=== PATIENT | female | born 1980 | race Caucasian/White ===

== ENCOUNTER → 2016-08-10 | Outpatient (CLI) | payer BC | LOC: LAB 09:37 | PROVIDERS: ATTEND Specialist | DX: M60.9 Myositis, unspecified (principal) | CPT/HCPCS: 36415; 82085; 82550 ==

== ENCOUNTER → 2016-11-28 | Outpatient (CLI) | payer BC ==
--- NOTE | 2016-11-28 10:17 | DI ---
DOUBLE CONTRAST UPPER GI SERIES, 11/28/2016 9:21 AM: Clinical History: Lesion of the larynx. A "time out" session was performed to verify the patient's name and date of prior to initiating this procedure. Deglutition is normal and the esophagus strips well. The esophagus is normal. There is no esophageal ulcer, stricture, or evidence of esophagitis. There is no hiatal hernia. There is ma rked spontaneous reflux of barium into the cervical esophagus with the patient in the supine position . The stomach, pyloric channel, duodenal bulb, C-loop, and the proximal small bowel run off are loida l. Readin. There is gross spontaneous reflux of barium to the cervical esophagus with the patient in the sup ine position. The esophagus itself is normal. There is no evidence of a a lesion in the distal esopha martha at the GE junction or in the cervical esophagus. 2. The stomach, pyloric channel, duodenal bulb, C-loop, and proximal small bowel run off are normal.
== END ==
LOC: RAD 09:16
PROVIDERS: ATTEND Nurse Practitioner Family
DX: J38.7 Other diseases of larynx (principal)
CPT/HCPCS: 74246

== ENCOUNTER → 2016-12-08 | Outpatient (CLI) | payer BC | LOC: EKG 10:21 | PROVIDERS: ATTEND Nurse Practitioner Family | DX: R00.2 Palpitations (principal) | CPT/HCPCS: 93270 ==

== ENCOUNTER → 2017-03-12 | Outpatient (CLI) | payer BC ==
[2017-03-14 07:16] LABS: IGA SERUM 107 mg/dL (61 - 356); TISSUE TRANSGLUT AB IGA <1.2 U/mL (())
== END ==
LOC: LAB 09:45
PROVIDERS: ATTEND Internal Medicine Gastroenterology
DX: R13.10 Dysphagia, unspecified (principal); K21.9 Gastro-esophageal reflux disease without esophagitis; J02.9 Acute pharyngitis, unspecified; R10.32 Left lower quadrant pain; R10.31 Right lower quadrant pain; K92.1 Melena
CPT/HCPCS: 36415; 82784; 83516

== ENCOUNTER → 2017-03-12 | Outpatient (CLI) | payer BC ==
[2017-03-12 10:42] LABS: BLOOD UREA NITROGEN 14 mg/dL (7-22); EST GLOMERULAR FILTRATION > 60 (>60 ml/min/1.73m(2)); SERUM ALBUMIN 4.1 g/dL (3.5-4.8)
[2017-03-12 10:58] LABS: FREE T4 (FREE THYROXINE) 1.4 ng/dL (0.93-1.71)
[2017-03-12 11:16] LABS: FERRITIN 52.5 ng/mL (12.00-336.70)
[2017-03-13 13:54] LABS: DEHYDROEPIANDROSTERONE SULFATE 53.1 mcg/dL (31-228); THYROID PEROXIDASE AB 126.1 IU/mL (<9.0)
== END ==
LOC: LAB 09:47
PROVIDERS: ATTEND Student in an Organized Health Care Education/Training Program
DX: E03.4 Atrophy of thyroid (acquired) (principal); N92.6 Irregular menstruation, unspecified; E66.3 Overweight; R53.83 Other fatigue
CPT/HCPCS: 80053; 82024; 82627; 82728; 83540; 83550; 84146; 84439; 84443; 86376

== ENCOUNTER → 2017-03-19 | Outpatient (CLI) | payer BC ==
[2017-03-21 17:16] LABS: COLLECTION DURATION 24 h (())
[2017-03-22 06:46] LABS: URINE VOLUME 1725 mL (())
== END ==
LOC: LAB 12:00
PROVIDERS: ATTEND Student in an Organized Health Care Education/Training Program
DX: E03.4 Atrophy of thyroid (acquired) (principal); N92.6 Irregular menstruation, unspecified; R53.83 Other fatigue; E66.3 Overweight
CPT/HCPCS: 82530

== ENCOUNTER 2018-05-16 08:39 | Observation (INO) ==
[~2018-05-16 08:39] MED LIST: CefOXitin Inj 2 GM in Sodium Chloride 0.9% 100 ML IV ONE; LIDOCAINE W/ SODIUM BICARB 0.5 ML SYR ONE; LIDOCAINE W/ SODIUM BICARB 0.5 ML SYR SUBD ONE; Lactated Ringers 1,000 ML PRIMARY IV ONE; Nasal Sanitizer POPSWAB ampule 3 AMP (Nozin) PREOP DOSE ENOS SCH; Sodium Chloride 0.9% 100 ML IV ONE
[2018-05-16] MEDS: Lactated Ringers 1,000 ML PRIMARY IV SCH ×2 (08:56→16:41)
[2018-05-16 08:57] LABS: URINE SPECIFIC GRAVITY - MAN 1.015
[2018-05-16 09:04] LABS: BACTERIA,URINE RARE; BILIRUBIN,URINE NEGATIVE (NEG); CLARITY,URINE Slightly Cloudy (CLEAR); COLOR,URINE YELLOW (Y); GLUCOSE, URINE (UA) NEGATIVE (NEG); OCCULT BLOOD,URINE NEGATIVE (NEG); PH,URINE 7.5 (5.0-8.5); PROTEIN,URINE NEGATIVE (NEG); RBC,URINE 0-1 /hpf; SQUAMOUS EPITHELIAL CELL,UR RARE; URINE SAMPLE TYPE CLEAN CATCH URINE; UROBILINOGEN,URINE 0.2 EU/dL (0.2); WBC,URINE 0-1
[2018-05-16 09:28] LABS: Hematocrit [HCT] 43.4 % (37.0-47.0); Hemoglobin [HGB] 15.5 g/dL (12.0-16.0)
[2018-05-16] MEDS ORDERED: LIDOCAINE HCL 2 % 10 ML JELLY URO-JECT TOPICAL ONE (09:54)
[2018-05-16] MEDS ORDERED: BUPIVACAINE 0.25% W/ EPI - 10 ML VIAL ONE (10:04)
[2018-05-16] MEDS ORDERED: Acetaminophen 1000mg Inj 1,000 MG/100 ML VIAL IV ONE (10:11)
[2018-05-16] MEDS ORDERED: ONDANSETRON 4 MG/2 ML VIAL ONE ×2 (10:11→11:56)
[2018-05-16] MEDS ORDERED: DEXAMETHASONE PF 10 MG/1 ML VIAL ONE (10:11)
[2018-05-16] MEDS ORDERED: PANTOPRAZOLE IV 40 MG VIAL ONE (10:11)
[2018-05-16] MEDS ORDERED: PROPOFOL 10 MG/1 ML (200 MG/20 ML) VIAL IV ONE (10:18)
[2018-05-16] MEDS ORDERED: SUFENTANIL 50 MCG/1 ML ONE (10:18)
[2018-05-16] MEDS ORDERED: MIDAZOLAM 5 MG/1 ML ONE (10:18)
[2018-05-16] MEDS ORDERED: fentaNYL Inj 250 MCG/5 ML VIAL ONE (10:18)
[2018-05-16] MEDS ORDERED: Sodium Chloride 0.9% vial 10 ML ONE (10:18)
[2018-05-16] MEDS ORDERED: KETAMINE 100 MG/1 ML - 5 ML ONE (10:18)
[2018-05-16] MEDS ORDERED: LIDOCAINE MPF 2% - 5 ML (20 MG/1 ML) ONE (10:18)
[2018-05-16] MEDS ORDERED: ROCURONIUM 10 MG/1 ML - 5 ML VIAL IVP ONE (10:20)
--- NOTE | 2018-05-16 10:34 | OB.OP.NOTE ---
Operative Report Surgeon: Garcia Associate Doctor: Alek Perla MD Anesthesia Type: General Anesthesia Provider: Chacorta Villalba CRNA Surgery Date: 05/16/18 Preoperative Diagnosis: Menometrorrhagia, dysmenorrhea, pelvic pain, pelvic pressure Postoperative Diagnosis: Same Procedure: Robotic-assisted laparoscopic hysterectomy. Bilateral salpingectomy. Postoperative cystoscopy Estimated Blood Loss (mL): 30 Fluids: 3200 mL of LR. EBL 30 mL. Urine 200 mL of clear yellow urine. B&O suppository-60 mg. Mefoxin 2 g IV preop Complications: None apparent Of note, with uterine and bowel manipulation, a small scrape of the sigmoid was noted. There was NO cautery to the area with the scrape. Maybe 1.5 to 2mm mm in length and less than 1 mm in depth. It did not appear to be a puncture. It appeared to involve the serosa only. There was no bleeding. It was examined carefully initially and that at the end of the hysterectomy and closure of the vaginal cuff, the area was inspected again. There was no bleeding. The area was irrigated. There was no bleeding. It appeared to be very superficial. Findings at Surgery: Normal appearing ovaries bilaterally. Uterus and fallopian tubes removed. Indications for the Procedure: The patient is a 38-year-old 014 Uses a vasectomy for contraception who presents for her preop for a robotic-assisted laparoscopic hysterectomy and bilateral salpingectomy and cystoscopy for metrorrhagia and dysmenorrhea and pelvic pressure. Patient states that her bleeding is about every 5 weeks for 1- 2 days but she has pain for 4 days. She also has pressure and feels as though her uterus is falling out of her vagina for those 4 days. Patient also has some discomfort and bloating around ovulation. The patient has seen me since August 2017 and she had an endometrial biopsy then which was benign secretory endometrium. Past medical history hypothyroidism, migraine headaches, Raynaud's disease, possible other autoimmune disorders, celiac disease, seasonal allergies, depression history. Past surgical history colonoscopy, vaginal delivery x4, D&C x1, EGD once The patient is allergic to Accutane, gluten, seasonal allergies No tobacco, no alcohol, no drugs. Vaginal delivery x4. Occasional CAMILLE but not significant. Last Pap smear was 2014 and this was normal. No history of abnormal Pap smears. Ultrasound August 2017 showed the uterus to be 4 x 5.5 x 9 cm. Both ovaries appeared normal. Endometrial stripe was 7 mm. Exam Const General: comfortable and cooperative; no in distress Orientation: oriented x3 and alert Resp Effort & Inspection: normal respiratory effort; no labored, pursed lip breathing , retractions, stridor or audible wheezes Auscultation: clear to auscultation bilaterally; no crackles, rales, diminished lung sounds, rhonchi or wheezes Cardio Rhythm: regular rhythm Heart Sounds: S1 normal and S2 normal; no murmur, rub, gallop or click GI Inspection: normal to inspection; no distended Palpation: soft; no guarding, aortic enlargement, hernia, mass or rigid Auscultation: normal bowel sounds External Genitalia: normal external appearance Vagina and Introitus: normal appearance of the vagina Cervix: normal appearance of the cervix (Parous appearing) Uterus: uterine size normal and other (Midplane to retroverted) Psych Appearance: grossly normal Mental Status: mental status grossly normal Speech and Movement: speech and movement normal Mood and Affect: mood and affect normal Assessment & Plan Problems 1. Metrorrhagia N92.1 The patient wishes definitive management for menorrhagia, dysmenorrhea, pelvic pain and pelvic pressure. The patient and I discussed the risks, but not limited to, infection, bleeding, pain, damage to bowel, bladder, nerve, vessel, blood clots to legs or lungs, possible need for laparotomy to complete the surgery, low risk of , incisional infection, the need for other surgeries, and the fact that I cannot guarantee that I can cure all of her symptoms with the hysterectomy. The patient expressed understanding and the consent forms were signed. The patient has watched videos of a robotic- assisted laparoscopic hysterectomy and bilateral salpingectomy. The patient states that she understands the procedures that we are going to complete on 06/2018. Consent forms were signed. Scopolamine patch was written for. Cytotec 200 g for cervical ripening for easier Application of the uterine manipulator was written for. I also discussed the prescriptions. I also informed her that the scopolamine patch maybe backordered because another patient told me this. 2. Dysmenorrhea N94.6 Please see above 3. Pelvic pain R10.2 Please see above 4. Pelvic pressure in female R10.2 Please see above Description of Procedure: The patient was brought to the operating room. The risks, but not limited to , benefits, alternatives and indications were discussed with the patient. Risk of infection, bleeding, pain, damage to bowel, bladder, nerve, vessel, ureter, wound infection, blood clots to the legs or lungs, the possibility of needing to do a laparotomy to complete the procedure, not curing all of the patient's observations of pelvic pain, pelvic pressure, hemorrhage, transfusion with associated risks, and the low risk of were discussed with the patient. The consent form had been signed. The patient was placed on the operating room table. The patient underwent general endotracheal anesthesia without complication. The patient was placed in the [facility] in the dorsal lithotomy position. Positioning appeared correct. The patient was prepped sterilely. Patient was draped sterilely. Attention was turned to the patient's perineum and a Augustine catheter was placed into her bladder through her urethra. A weighted speculum was placed in her vagina posteriorly and a Jacobs retractor anteriorly and the cervix was visualized and grasped with single-tooth tenaculum. The uterus was sounded to 8 cm. An 8 cm uterine manipulator tip was requested. A medium Serena ring was requested. The uterine manipulator was assembled. The tip of the uterine manipulator was placed and the cervix into the uterus and insufflated. The single-tooth tenaculum was removed. The Serena ring was then manipulated and placed around the patient's cervix. The Serena ring circumferentially and the cervix was protected by the Serena ring 360. Gloves were then changed. Attention was then turned to the patient's abdomen. Quarter percent Marcaine was then injected infraumbilically and then an incision was made infraumbilically. Towel clamps were placed lateral to the incision bilaterally. The scope along with the trocar and sleeve under direct visualization was placed into the abdomen. CO2 gas was insufflated into the abdomen. The intra- abdominal organs were visualized. Lateral to the umbilicus on the right side about 10 cm the skin was injected and then incised about 1 cm and a trocar and port were placed under direct visualization. The trocar was removed. Lateral to the umbilicus on the left side about 10 cm the skin was injected and then incised about 1 cm and a trocar and port were placed under direct visualization. The trocar was removed. The robot was then brought into place. The camera arm was attached to the infraumbilical port. The #1 arm was attached to the right port and the #2 arm was attached to the left port. The smoke evacuator tubing was hooked up to the right port. The monopolar scissors was placed under direct visualization in the right port. The bipolar instrument was placed in the left port under direct visualization. The console was then used to manipulate the instruments and the scope. Photographs of the uterus and fallopian tubes and ovaries were taken. The ovaries appeared normal. The decision was made to leave the ovaries intact. The right fallopian tube was identified and the mesosalpinx was identified and the bipolar was used to cauterize the mesosalpinx and then the monopolar scissors were used to incise the mesosalpinx. This was completed up to the cornua. The round ligament was then identified and bipolar was used to cauterize the round ligament in [address]. The round ligament was then incised more medially using the monopolar scissors. The utero-ovarian ligament was then identified and the bipolar was used to cauterize the utero-ovarian ligament and a couple different places. The utero- ovarian ligament was then incised using the monopolar scissors. Of note, with uterine and bowel manipulation, a small scrape of the sigmoid was noted. There was NO cautery to the area with the scrape. Maybe 1.5 to 2mm mm in length and less than 1 mm in depth. It did not appear to be a puncture. It appeared to involve the serosa only. There was no bleeding. It was examined carefully initially and that at the end of the hysterectomy and closure of the vaginal cuff, the area was inspected again. There was no bleeding. The area was irrigated. There was no bleeding. It appeared to be very superficial. The same procedure was then done incise the mesosalpinx on the left side as well as the round ligament and utero-ovarian ligament. At this point, Dr. Perla operated from the console and I manipulated the patient's uterus to allow for better visualization. The uterine artery was then skeletonized on the left side. Using the bipolar cautery the uterine arteries were cauterized and then the monopolar scissors were used to cut the cauterized artery. The tissue laterally fell away from the cervix. The bladder was identified and the serosa was incised with the monopolar scissors to create the bladder flap. The bladder was dissected and gently pushed caudally. The uterine artery was then skeletonized on the right side. Using the bipolar cautery the uterine arteries were cauterized and then the monopolar scissors were used to cut the cauterized artery. The tissue laterally fell away from the cervix. The smaller residual uterine vessels were continued to be bovied and then cut to allow for a circumferential incision along the vaginal cuff along the Serena ring. There appeared to be good hemostasis. The Serena ring cuff was then insufflated. The monopolar scissors were then used to incise the vagina on the Serena ring anteriorly and the Serena ring was then visualized. The monopolar scissors were then used to continue to cut circumferentially along the Serena ring. The uterus was manipulated and anteverted so that the vagina could be incised posteriorly along the Serena ring. The Serena ring was then visualized 360 and the hysterectomy and bilateral salpingectomy was complete. The uterus and fallopian tubes were then removed through the vaginal cuff and vagina. The vaginal cuff had a few bleeders which were bovied with the bipolar and there was good hemostasis. The suction bioinformatics research technician was then used to suction any blood. The 12 inch 0-V lock suture was then used to close the vaginal cuff starting on the patient's left side and in a running fashion the vaginal cuff was closed and then the suture was brought back towards the right and then cut. There were 2 small bleeders noted in the vaginal cuff as the vaginal cuff closure was occurring. With the V lock suturing, there was good hemostasis of these 2 small bleeders. The needle was then placed in the serosa of the bladder flap for removal later. The suction bioinformatics research technician was then used to irrigate and then suction. There appeared to be good hemostasis of the vaginal cuff and in the areas where the bilateral salpingectomy was completed. The vaginal cuff was observed from the vaginal aspect and a sponge stick was gently placed 3 and there appeared to be good hemostasis with minimal blood on the sponge stick. Instruments were removed and then the robot was undocked. Gloves and gowns were then changed. A scope was then placed in the right sided port and then a grasper was placed through the infraumbilical port and the needle from the V lock suture was identified and then removed through the infraumbilical port. The vaginal cuff and other areas were examined again and there appeared to be very good hemostasis. The scope was removed. The CO2 gas was allowed to escape out of the patient's abdomen. The 3 ports were removed. The infraumbilical port fascia was then identified and [place] clamps grasped the fascia and the fascia was closed with 0 Vicryl suture in a [id number]. There appeared to be good closure of the fascia. The subcutaneous tissue of the 3 incisions were then closed with 4-0 Monocryl suture and then 3-0 Stratafix suture was then used to close the skin. Skin prep was placed on either side of the 3 incision sites and then Steri-Strips. And then a small Band-Aid was placed on the 3 incision sites. Simultaneously, the cystoscopy was performed. Augustine catheter had been removed previously. The right and left ureteral orifice was identified and the bladder. After a short time, there was good spill of urine into the bladder from the right and the left ureteral office. There was also a good bubble in the dome of the bladder signifying that the bladder appeared to be intact. The cystoscopy was completed. The procedure was completed. Sponge lap and needle counts were correct 2 Per my protocol, the patient will be admitted for 23 hour observation. Plan: The patient will be observed for 23 hour observation.
[2018-05-16] MEDS ORDERED: Lactated Ringers 2,000 ML PRIMARY IV ONE (10:51)
[2018-05-16] MEDS ORDERED: Opium-Belladonna 60-16.2mg 1 EACH SUPP.RECT RECTAL ONE (11:12)
[2018-05-16] MEDS ORDERED: HYDROmorphone 2 MG/1 ML ONE (11:28)
[2018-05-16] MEDS ORDERED: KETOROLAC 30 MG/1 ML VIAL ONE (11:51)
[2018-05-16] MEDS ORDERED: SUGAMMADEX SODIUM 200 MG/2 ML VIAL IV ONE (12:22)
--- NOTE | 2018-05-16 13:00 | CRNA.PROGR ---
Anesthesia Recovery Phase I - Post Anesthesia Evaluation Patient's Condition on Arrival in Phase I: Stable Patient's Condition on Arrival in Phase II: Stable Pain Level: 0
[2018-05-16] MEDS ORDERED: HYDROmorphone 2 MG/1 ML IVP PRN (13:01)
[2018-05-16] MEDS ORDERED: fentaNYL Inj 100 MCG/2 ML VIAL IVP PRN (13:01)
[2018-05-16] MEDS ORDERED: Prochlorperazine Edisylate Inj 10mg/2ml vial IVP PRN (13:01)
[2018-05-16] MEDS ORDERED: LIDOCAINE W/ SODIUM BICARB 0.5 ML SYR SUBD PRN (13:01)
--- NOTE | 2018-05-16 13:01 | CRNA.PROGR ---
Anesthesia Time - Procedure/Recovery Time Start Date: 05/16/18 End Date: 05/16/18 Anesthesia : Time In: 10:31 Anesthesia : Time Out: 12:55 Anesthesia : Total Time: 144 - Total Anesthesia Time Total Anesthesia Time (minutes): 144 - Other Weight: 81 kg Height: 5 ft 5 in Body Mass Index (BMI): 29.7 Physical Status: P2 Anesthesia Type: General Anesthesia : ET
[2018-05-16] MEDS ORDERED: Ondansetron ODT Tab 8 MG TAB PO PRN (13:31)
[2018-05-16] MEDS ORDERED: LIDOCAINE HCL 2 % 10 ML JELLY URO-JECT TOPICAL PRN (13:31)
[2018-05-16] MEDS ORDERED: IBUPROFEN 800 MG TABLET PO PRN (13:31)
[2018-05-16] MEDS: HYDROcodone-APAP 5 MG -325 MG TABLET PO PRN ×2 (15:27→19:55)
--- NOTE | 2018-05-16 18:29 | PDOC(PROG) ---
Subjective Post Op Day: 0 Pain Management: PO (And IV Toradol) Augustine Catheter: No Flatus: No Diet: Clear Liquids (Advance as tolerated) Ambulating: Yes Concerns / Additional Information: Patient states she has been resting but did ambulate to the restroom. She was not able to void yet. Objective - General General Appearance: POSITIVE: No Acute Distress, Cooperative - Abdomen Other Abdominal Exam Details: Abdomen was soft and appropriately tender Assesstment / Plan Assessment / Plan: Assessment: Postoperative day #0 status post robotic-assisted laparoscopic hysterectomy and bilateral salpingectomy. Patient's vital signs are good. Patient feels okay and has been resting. Patient is slightly nauseated. Plan: Continue to observe the patient closely Check CBC and BMP in the morning
[2018-05-16] MEDS: KETOROLAC 15 MG/1 ML VIAL IVP SCH (18:36)
[2018-05-16] MEDS: DOCUSATE 100 MG CAPSULE PO SCH (20:00)
[2018-05-16 20:29] VITALS: RESP 16
[2018-05-17] MEDS: KETOROLAC 15 MG/1 ML VIAL IVP SCH ×2 (00:29→06:38)
[2018-05-17] MEDS: HYDROcodone-APAP 5 MG -325 MG TABLET PO PRN ×2 (03:34→08:18)
[2018-05-17 04:13] LABS: BASOPHILS # (AUTO) 0.01 10*3/UL; BASOPHILS % (AUTO) 0.1 % (0-1); EOSINOPHILS # (AUTO) 0.01 10*3/UL; EOSINOPHILS % (AUTO) 0.1 % (0-8); Hematocrit [HCT] 37.9 % (37.0-47.0); Hemoglobin [HGB] 13.4 g/dL (12.0-16.0); LYMPHOCYTES # (AUTO) 1.75 10*3/uL; MEAN CORPUSCULAR HEMOGLOBIN 30.1 PG (27-31); MEAN CORPUSCULAR HGB CONC 35.4 g/dL (33-37); MEAN CORPUSCULAR VOLUME 85.2 FL (81-99); MEAN PLATELET VOLUME 10.2 FL (7.4-12.2); MONOCYTES # (AUTO) 0.78 10*3/UL (0.3-0.8); MONOCYTES % (AUTO) 7.9 % (5-15); NEUTROPHILS # (AUTO) 7.31 10*3/UL; NEUTROPHILS % (AUTO) 73.9 % (50-80); RED BLOOD COUNT 4.45 10^6/uL (4.20-5.40)
[2018-05-17 04:39] LABS: BLOOD UREA NITROGEN 12 mg/dL (7-22); BUN/CREATININE RATIO 17.14 (6-20)
[2018-05-17 05:20] LABS: PLATELET MORPHOLOGY COMMENT NORMAL MORPHOLOGY (NORM); RBC MORPHOLOGY COMMENT NORMAL MORPHOLOGY (NORM); WBC MORPHOLOGY COMMENT NORMAL MORPHOLOGY (NORM)
[2018-05-17 08:06] VITALS: BP 97/54; TEMP 98.3; O2SAT 96
[2018-05-17] MEDS: DOCUSATE 100 MG CAPSULE PO SCH (08:18)
--- NOTE | 2018-05-17 08:35 | CRNA.PROGR ---
Anesthesia Note - Progress Notes Anesthesia Progress Note: Post OP Anesthesia Note Pt is sitting up in bed enjoying breakfast. She states that her pain is well under control. She had one episode of N/V last evening but nothing since. She is tolerating reg diet now. She denies any residual problems from the GETA. Current VS are stable. Vital Signs - Last Taken Temperature 98.3 F 05/17/18 08:04 Pulse Rate 86 05/17/18 08:04 Respiratory Rate 16 05/17/18 08:04 Blood Pressure 97/54 05/17/18 08:04 Pulse Ox 96 05/17/18 08:04
--- NOTE | 2018-05-17 10:09 | PDOC(PROG) ---
Subjective Post Op Day: 1 Pain Management: PO (And IV Toradol every 6) Augustine Catheter: No Flatus: Yes Diet: Regular Ambulating: Yes Concerns / Additional Information: The patient states that she is doing much better. She had significant nausea last night and emesis 1. This morning, the patient had slight nausea but that resolved. She is able to void well. Minimal bleeding. Minimal abdominal pain. Positive flatus Objective - General General Appearance: POSITIVE: No Acute Distress, Cooperative - Cardiovacular Cardiovascular Exam: POSITIVE: RRR Edema: No Pedal Edema Extremities: Negative Allison's - Bilaterally - Respiratory Respiratory Exam: POSITIVE: Clear to Auscultation - Bilaterally - Abdomen Bowel Sounds: Present Other Abdominal Exam Details: Appropriately tender. No guarding or rebound Assesstment / Plan Assessment / Plan: Assessment: Postoperative day #1 status post robotic-assisted laparoscopic hysterectomy and bilateral salpingectomy. The patient is doing well. Positive flatus. No guarding or rebound. Nausea has essentially resolved. White blood cell count was normal today H&H good. Plan: Will discharge home today. Ibuprofen 800 mg 1 tablet by mouth 3 times a day with food or milk for 5 days then 3 times a day as needed Colace 100 mg capsule 1 capsule by mouth daily to twice a day when necessary constipation Hydrocodone/Tylenol 1-2 tablets by mouth every 6 hours when necessary pain Meclizine 25 mg tablet one half tablet to one tablet by mouth every 6 hours when necessary nausea. If the patient were to use the promethazine, the patient should remove her scopolamine patch. The patient should return on 05/20/2018 at 10:00 in the morning. Her actual appointment is for 3:00 in the afternoon but I would like to see her at 10 in the morning. The patient should go to the emergency room for fever, increasing abdominal pain , or just not feeling well. Increasing nausea.
== END 2018-05-17 11:15 | disposition home or self-care (01) ==
LOC: OR 08:39 → MED/SURG 08:39
PROVIDERS: ADMIT Obstetrics & Gynecology; ATTEND Obstetrics & Gynecology